=== PATIENT | male | born 1995 | race African-American/Black ===

== ENCOUNTER 2017-07-06 17:35 | Emergency (ER) | payer SELFPAY ==
[~2017-07-06] VITALS: Ht 195.6 cm; Wt 86.4 kg
[2017-07-06 17:37] VITALS: BP 163/75; PULSE 83; TEMP 98.3
== END 2017-07-06 18:21 | disposition home or self-care (01) ==
LOC: COL.ER 17:35
DX: S61.210A Laceration without foreign body of right index finger without damage to nail, initial encounter (principal); Z23 Encounter for immunization; W26.8XXA Contact with other sharp object(s), not elsewhere classified, initial encounter; Y92.89 Other specified places as the place of occurrence of the external cause

== ENCOUNTER 2017-07-16 18:14 | Emergency (ER) | payer SELFPAY ==
[2017-07-16 18:17] VITALS: BP 127/69; PULSE 76; TEMP 98.5
== END 2017-07-16 18:20 | disposition home or self-care (01) ==
LOC: COL.ER 18:14
DX: S61.217D Laceration without foreign body of left little finger without damage to nail, subsequent encounter (principal); X58.XXXD Exposure to other specified factors, subsequent encounter